=== PATIENT | male | born 1975 | race Two or more races ===

== ENCOUNTER 2017-10-15 06:50 | Inpatient (IN) | payer MEDICAID ==
[~2017-10-15] VITALS: Ht 172.7 cm; Wt 74.8 kg
[2017-10-15] VITALS (8 sets, daily range): BP systolic 110–129; BP diastolic 55–73
--- NOTE | 2017-10-15 07:20 | NUR ---
LT HIP ABSCESS X1 WEEK; BUST TODAY. FOUL SMELLING ODOR. NAD NOTED. PT AAOX 4, AM BWITH STEADY GAIT. RR EVEN AND UNALBORED. PENDING MD HOPE.
[2017-10-15] MEDS ORDERED: PIPERACILLIN /TAZOBACTAM 3.375 G in IV D5W 50 ML IV ONE (07:30)
[2017-10-15] MEDS ORDERED: CEFTRIAXONE 1GM BAG (ER ONLY) 50 ML IV ONE (07:30)
[2017-10-15] MEDS ORDERED: VANCOMYCIN 1 GM in IV D5W 250 ML IV ONE (07:30)
[2017-10-15] MEDS ORDERED: IV NS 0.9% 1,000 ML BAG IV ONE (07:30)
[2017-10-15] MEDS ORDERED: IBUPROFEN 600 MG TABLET PO ONE ×2 (07:30→08:21)
[2017-10-15] MEDS ORDERED: ACETAMINOPHEN ES 500 MG TABLET PO ONE (07:30)
[2017-10-15] MEDS ORDERED: ACETAMINOPHEN ES 500 MG TABLET ONE (08:21)
[2017-10-15 08:30] LABS: HEMATOCRIT 33 % (39-51); HEMOGLOBIN 10.9 g/dL (13.5-17.5); LYMPHOCYTES # (AUTO) 1.1 /CMM (0.8-4.8); LYMPHOCYTES % (AUTO) 6.3 % (20.0-44.0); MEAN CORPUSCULAR HGB CONC 33 g/dl (31.0-36.0); MEAN CORPUSCULAR VOLUME 83 fL (80-96); MONOCYTES # (AUTO) 1.7 /CMM (0.1-1.30); MONOCYTES % (AUTO) 9.2 % (2.0-12.0); NEUTROPHILS # (AUTO) 15.1 /CMM (1.8-8.9); NEUTROPHILS % (AUTO) 83.5 % (43.0-81.0); PLATELET COUNT (AUTO) 464 /CMM (150-450); RDW COEFFICIENT OF VARIATION 15.2 (11.5-15.0); RED BLOOD CELL COUNT(AUTO) 3.98 MIL/uL (4.5-6.0); WHITE BLOOD COUNT (AUTO) 18.1 K/uL (4.3-11.0)
--- NOTE | 2017-10-15 08:31 | NUR ---
MEDICATIONS GIVEN PER MD ORDER
[2017-10-15 08:45] LABS: BAND % (MANUAL) 2 % (0.0-5.0); EOSINOPHILS % (MANUAL) 1 % (0-4); LYMPHOCYTES % (MANUAL) 10 % (16-48); MONOCYTES % (MANUAL) 9 % (0-11.0); NEUTROPHILS % (MANUAL) 78 (42-76)
[2017-10-15 08:46] LABS: INR 1.04 (0.87-1.13)
[2017-10-15 08:56] LABS: CALCIUM, SERUM 8.8 mg/dL (8.5-10.1); CARBON DIOXIDE 26 mmol/L (21-32); CHLORIDE 98 mmol/L (98-107); CREATININE 0.9 mg/dL (0.6-1.3); GLUCOSE 101 mg/dL (74-106); POTASSIUM 3.6 mmol/L (3.5-5.1); SODIUM SERUM 135 mmol/L (136-145); UREA NITROGEN, BLOOD 12 mg/dL (7-18)
--- NOTE | 2017-10-15 08:59 | NUR ---
PAGED EPIC FOR ADMSSION
[2017-10-15 09:02] LABS: ALANINE AMINOTRANSFERASE 22 U/L (12-78); ALBUMIN 2.1 g/dL (3.4-5.0); ALKALINE PHOSPHATASE 132 U/L (46-116); ASPARTATE AMINOTRANSFERASE 22 U/L (15-37); BILIRUBIN,DIRECT 0.1 mg/dL (0.0-0.2); BILIRUBIN,TOTAL 0.2 mg/dL (0.2-1.0); TOTAL PROTEIN, SERUM 7.4 g/dL (6.4-8.2)
[2017-10-15 09:04] LABS: TROPONIN I < 0.017 ng/mL (0.00-0.056)
--- NOTE | 2017-10-15 09:47 | NUR ---
REPORT GIVEN TO QUAN QUINTANILLA FOR MELI
--- NOTE | 2017-10-15 09:55 | NUR ---
PT. BROUGHT UP FROM ER,PUT INTO PRIVATE RM.HAS FOUL SMELLING WD. LT. HIP AND DRAINING PURULENT MATTER.VS TAKEN AND ORIENTED TO RM.IV SITE INTACT LT. JUGULAR.VANCO STILLINFUSING FROM ER.
[2017-10-15 10:54] LABS: ALCOHOL, BLOOD < 3 mg/dL (0-0); LIPASE 45 U/L (73-393)
[2017-10-15] MEDS ORDERED: FEE PK DOSING 1 MIN EA MC ONE (12:30)
[2017-10-15] MEDS ORDERED: MAGNESIUM HYDROXIDE 30 ML UDC PO PRN (12:30)
[2017-10-15] MEDS ORDERED: ZOLPIDEM TARTRATE 5 MG TABLET PO PRN (12:30)
[2017-10-15] MEDS ORDERED: ACETAMINOPHEN 325 MG TABLET PO PRN (12:30)
[2017-10-15] MEDS ORDERED: Z GUARD REMEDY 2 OZ OINT TP PRN (12:30)
[2017-10-15] MEDS ORDERED: MAG HYDROX/AL HYDROX/SIMETH 30 ML UDC PO PRN (12:30)
--- NOTE | 2017-10-15 15:00 | NUR ---
URINE SENT TO LAB PER ORDERS.PHOTOS TAKEN OF SCAB INNER RT.THIGH AND ABSCESS LT. HIP.
[2017-10-15 18:04] LABS: APPEARANCE,URINE SL CLOUDY (CLEAR); BILIRUBIN,URINE NEGATIVE (NEGATIVE); BLOOD, URINE NEGATIVE Ery/uL (NEGATIVE); COLOR,URINE YELLOW (YELLOW); KETONES,URINE NEGATIVE (NEGATIVE); LEUKOCYTE ESTERASE ,URINE NEGATIVE (NEGATIVE); NITRITE, URINE NEGATIVE (NEGATIVE); PROTEIN,URINE NEGATIVE (NEGATIVE); UGLUCOSE NEGATIVE (NEGATIVE); UROBILINOGEN,URINE 0.2 EU/dL (0.2)
[2017-10-15] MEDS: HYDROCODONE/APAP 5/325MG 1 EACH TABLET PO PRN (18:24)
[2017-10-15] MEDS: VANCOMYCIN 1 GM in IV NS 0.9% 250 ML IV SCH (18:25)
--- NOTE | 2017-10-15 18:30 | NUR ---
MED FOR LT. HIP PAIN WITH NORCO.DR. RAHMAN IN TO SEE PT. AND STATED ER HAD CALLED DR. SAUCEDO.
--- NOTE | 2017-10-15 20:00 | NUR ---
MS RN OPENING NOTE Patient was seen lying in bed AAOx4, breathing on RA with no SOB. Patient was anxious, restless, dry-heaving and complaining of nausea. Patient is a heroin user and voiced concern about withdrawal. I administered 4mg of Zofran IV; patient was much more calm after Zofran was given. Wound on left hip was noted to be red, swollen, and painful (reason for ED visit). Vitals are WNL. Patient is satisfied with Zofran given and has no other immediate needs/concerns. Will continue to monitor.
[2017-10-15] MEDS: ONDANSETRON HCL/PF 4 MG/2 ML VIAL IVP PRN (20:05)
--- NOTE | 2017-10-15 21:19 | NUR ---
MS RN NOTE - New meds for withdrawal Spoke to Dr. Cipriano Morejon on the phone regarding patient's withdrawal symptoms from heroin/methamphetamines. Per Dr. Morejon, orders to be placed for [place] 10/325mg, q4h, PO; Ativan 2mg q8h PRN; and clonidine 0.1mg, tid, PO. Orders were read back and Dr. Morejon confirmed. Orders placed and acknowledged.
[2017-10-15] MEDS ORDERED: HYDROMORPHONE INJ 2 MG/ML DISP.SYRIN IV STA (21:55)
[2017-10-15] MEDS ORDERED: LIDOCAINE 1% INJ 50 ML MDV IJ ONE (22:00)
[2017-10-15] MEDS ORDERED: LIDOCAINE HCL/PF 1% 30 ML SDV ONE (22:10)
--- NOTE | 2017-10-15 22:10 | NUR ---
MS RN NOTE - Dilaudid One time dose of IV Dilaudid 2mg administered as ordered prior to bedside procedure wound drainage/debridement.
[2017-10-15] MEDS: HYDROCODONE/APAP 10/325MG 1 EA TABLET PO PRN (23:15)
--- NOTE | 2017-10-15 23:15 | NUR ---
MS RN NOTE - Grant Grant 10/325mg PO administered to patient as ordered by Dr. Cipriano Morejon for both pain relief d/t left hip abscess/wound infection and for heroin withdrawal. Patient reports 10/10 pain at left hip, is screaming/moaning, and restless.
[2017-10-16 00:15] VITALS: BP 109/57
[2017-10-16] MEDS: LORAZEPAM 1 MG TABLET PO PRN (00:24)
--- NOTE | 2017-10-16 00:25 | NUR ---
MS RN NOTE - Ativan PO Ativan 2mg administered as ordered per Dr. Morejon for opioid/amphetamine withdrawal. Patient is restless, anxious, and crying. Will continue to monitor.
[2017-10-16 01:15] VITALS: BP 136/77
[2017-10-16] MEDS: VANCOMYCIN 1 GM in IV NS 0.9% 250 ML IV SCH ×3 (01:22→16:45)
[2017-10-16] MEDS: HYDROCODONE/APAP 10/325MG 1 EA TABLET PO PRN ×2 (03:16→17:07)
--- NOTE | 2017-10-16 06:48 | NUR ---
MS RN CLOSING NOTE Patient was seen in bed AAOx4, breathing on RA with no SOB. Patient slept intermittently overnight, complaining frequently of left hip pain (s/p wound debridement/drainage, wound infection); patient is also a regular heroin/amphetamine user. PRN [place], Ativan, and Zofran provided for pain and withdrawal symptoms (see previous notes). Patient has SL 20g IV in the left external jugular vein. Left hip wound is covered with dressing which is clean, dry, and intact (to be changed BID). Bed is in low/locked position, two side rails up, call dumont within reach. All orders carried out and patient needs met this shift. Patient remains in stable condition and care is endorsed to day shift nurse.
--- NOTE | 2017-10-16 07:36 | NUR ---
RN OPENING NOTES RECEIVED PT. PT IS STABLE AND SLEEPING IN BED. NO S/S OF RESP DISTRESS OR SOB. PT DOES NOT APPEAR TO BE IN PAIN AT THIS TIME. L HIP WOUND NOTED, DRESSING REMAINS UNSATURATED. IV ACCESS LOCATED ON LEFT JUGULAR 20G, SL. SAFETY MEASURES IN PLACE, CALL LIGHT WITHIN REACH. WILL CONTINUE TO MONITOR.
--- NOTE | 2017-10-16 07:57 | NUR ---
RN NOTES PT IS REFUSING AM VITAL SIGNS. EXPLAINED THE BENEFITS/RISKS TO PT, PT VERBALIZED UNDERSTANDING. WILL F/U FOR VS RETAKE IN APPROX 1 HR.
[2017-10-16 08:34] LABS: CALCIUM, SERUM 8.3 mg/dL (8.5-10.1); CREATININE 0.9 mg/dL (0.6-1.3); PHOSPHORUS 3.3 mg/dL (2.5-4.9); POTASSIUM 3.5 mmol/L (3.5-5.1)
[2017-10-16 08:41] LABS: BASOPHILS % (AUTO) 0.1 % (0.0-2.0); EOSINOPHILS % (AUTO) 0.8 % (0.0-6.0); HEMATOCRIT 34 % (39-51); HEMOGLOBIN 11.3 g/dL (13.5-17.5); LYMPHOCYTES # (AUTO) 1.5 /CMM (0.8-4.8); LYMPHOCYTES % (AUTO) 9.1 % (20.0-44.0); MEAN CORPUSCULAR HGB CONC 33 g/dl (31.0-36.0); MEAN CORPUSCULAR VOLUME 82 fL (80-96); MONOCYTES % (AUTO) 5.7 % (2.0-12.0); NEUTROPHILS # (AUTO) 14.3 /CMM (1.8-8.9); NEUTROPHILS % (AUTO) 84.3 % (43.0-81.0); PLATELET COUNT (AUTO) 501 /CMM (150-450); RDW COEFFICIENT OF VARIATION 15.7 (11.5-15.0); RED BLOOD CELL COUNT(AUTO) 4.11 MIL/uL (4.5-6.0)
[2017-10-16 09:00] VITALS: BP 120/74
[2017-10-16] MEDS: CLONIDINE HCL 0.1 MG TABLET PO SCH ×3 (09:00→16:45)
[2017-10-16] MEDS: HYDROCODONE/APAP 5/325MG 1 EACH TABLET PO PRN (09:18)
--- NOTE | 2017-10-16 11:49 | NUR ---
WOUND CARE CONSULT WOUND CARE RECEIVED CONSULT FOR LEFT HIP ABSCESS POS FOR MRSA. WOUND CARE WILL DEFER TREATMENT PLAN TO PRIMARY SURGEON DR SAUCEDO AT THIS TIME WITH WOUND CARE ASSIST IF NEEDED. DISCUSSED WITH PRIMARY RN TODAY AND HE WILL CALL SURGEON FOR TREATMENT ORDERS.
--- NOTE | 2017-10-16 14:30 | NUR ---
RN NOTES CONTACTED DR. SAUCEDO FOR INSTRUCTIONS IN PERFORMING WOUND CARE ORDERS. AWAITING RESPONSE FROM DRESSING REMAINS UNSATURATED AND INTACT. WILL F/U WITH .
--- NOTE | 2017-10-16 14:30 | NUR ---
Social service consult requested by Dr. Green for homelessness and drug use. Pt. is a 42 year old male who was admitted to [facility] for left hip cellulitis. LUCAS and case management associate Kandace Lombardo met with pt. bedside. Pt. is alert and oriented x 4. Pt. appears disheveled and has tattoos all over his body. Pt. states he is homeless and has been for the past two years. Prior to being homeless, pt. had an apartment on [address]. Pt. also had a job but lost his job due to injury. Pt. receives $250/ month in [employer] and $180/ month in food stamps. Pt. states he has a tent at the [facility] in [facility]. Pt. is a drug user and his drug of choice is heroin and methamphetamines. Pt. last used three weeks ago. Pt. attended [facility] center in 2002. LUCAS offered pt. if he would like to go to inpatient rehab. again. Pt. declined stating he is interested in outpatient treatment at this time. LUCAS informed pt. she will call [facility] and have them come assess him tomorrow. Pt. agreed. LUCAS contacted [facility] in [place] and spoke to Roger who informed SW he will come by to assess pt. tomorrow at 1:30PM. LUCAS updated Med Surg 3 REBEKA Zayas regarding the assessment. SW to follow up with pt. tomorrow again prior to discharge.
[2017-10-16 16:00] VITALS: BP 117/67
--- NOTE | 2017-10-16 18:44 | NUR ---
RN CLOSING NOTES PT STABLE IN BED. NO S/S OF RESP DISTRESS/SOB. PT HAS C/O PAIN / HOWEVER NORCO 10 RECENTLY GIVEN. DRESSING CHANGE PERFORMED. SAFETY MEASURES IN PLACE, CALL LIGHT WITHIN REACH. WILL ENDORSE TO TIMBER MANAGEMENT ASSISTANT FOR MELI.
[2017-10-16] MEDS: ONDANSETRON HCL/PF 4 MG/2 ML VIAL IVP PRN (19:17)
--- NOTE | 2017-10-16 19:30 | NUR ---
MS RN OPENING NOTE Patient was seen lying in bed AAOx4, breathing on RA with no SOB, and no signs of acute distress. Dressing on left hip was recently changed on last shift and is clean, dry, and intact. Vanco is running through the left ext. jugular. Bed is in low/locked position, two side rails up, and call dumont within reach. Patient has no immediate needs/concerns at this time. Will continue to monitor.
[2017-10-16 20:00] VITALS: BP 138/83
[2017-10-17] MEDS: VANCOMYCIN 1 GM in IV NS 0.9% 250 ML IV SCH ×3 (01:29→16:58)
[2017-10-17] MEDS: HYDROCODONE/APAP 10/325MG 1 EA TABLET PO PRN (05:39)
--- NOTE | 2017-10-17 07:28 | NUR ---
MS RN CLOSING NOTE Patient was seen in bed AAOx4, breathing on RA with no SOB, and no signs of acute distress. Patient slept well overnight with no complaints and remains stable. Wound care provided prior to shift change; left hip wound was cleansed with betadine solution, packed with keriliex, and covered with abd dressing per MD order. SL 20g IV is in the left ext. jugular and is intact, patent, & flushed. Bed is in the low/locked position, two side rails up, and call dumont within reach. Patient care has been endorsed to day shift nurse.
--- NOTE | 2017-10-17 07:44 | NUR ---
RN OPENING NOTES PT IN BED SLEEPING, HOWEVER AROUSES EASILY. NO S/S OF RESP DISTRESS/SOB. PT DOES NOT APPEAR TO BE IN PAIN AT THIS TIME. LEFT EJ IV ACCESS PATENT/IN PLACE. L HIP WOUND DRESSING DRY/CLEAN/UNSATURATED. SAFETY MEASURES IN PLACE, CALL LIGHT IN REACH. WILL CONTINUE TO MONITOR.
[2017-10-17 08:00] VITALS: BP 128/72
[2017-10-17] MEDS: CLONIDINE HCL 0.1 MG TABLET PO SCH ×3 (08:34→17:00)
[2017-10-17 09:00] VITALS: BP 128/72
--- NOTE | 2017-10-17 10:00 | NUR ---
RN NOTES PT FOUND IN ROOM WITH GUEST, WITH NOTICEABLE ODOR OF CIGARETTE SMOKE WITHIN THE ROOM. PT AND VISITOR DENY ACTIVELY SMOKING IN THE ROOM WITH THE VISITOR STATING "i WAS JUST SMOKING OUTSIDE, I JUST SMELL LIKE CIGARETTES." EXPLAINED TO THE PT THE DANGERS OF SMOKING WITHIN THE HOSPITAL ROOM, PT AND VISITOR VERBALIZE UNDERSTANDING OF DANGERS OF SMOKING. PT MOVED TO ROOM 323-1, TO BE BETTER SUPERVISED DURING HOSPITAL STAY. WILL CONTINUE TO MONITOR.
--- NOTE | 2017-10-17 13:35 | NUR ---
LUCAS escorted Roger from [facility] program to assess the pt. for outpatient per pt's request. Per Roger, pt. had a friend in the room with him and she suggested for pt. to go to detox program and not outpatient. LUCAS contacted [facility] and spoke to Nay Iyer at [facility] for detox and they both have no availability at this time. LUCAS to give pt. referrals to drug rehabilitation programs prior to discharge.
[2017-10-17] MEDS: HYDROCODONE/APAP 5/325MG 1 EACH TABLET PO PRN (13:36)
[2017-10-17] MEDS: LORAZEPAM 1 MG TABLET PO PRN (13:36)
--- NOTE | 2017-10-17 14:07 | NUR ---
RN NOTES LAB UNABLE TO DRAW BLOOD FOR PT'S ROUTINE CBC. PT HAD BECOME ANGRY/AGITATED REGARDING THE MULTIPLE ATTEMPTS TO DRAW SAMPLE. ATIVAN AND PAIN MEDICATION GIVEN TO CONTROL BOTH PAIN AND INCREASING AGITATION. WILL CONTINUE TO MONITOR.
--- NOTE | 2017-10-17 14:09 | NUR ---
RN NOTES PT HAD MEETING WITH [facility]. PT IS REQUESTING DETOX AND NOT REHAB SERVICES. WILL F/U WITH CASE MANAGEMENT.
--- NOTE | 2017-10-17 14:47 | NUR ---
LUCAS met with pt. bedside and informed him that after calling [facility] and [facility], no beds are available at this time. LUCAS gave pt. list of referrals to drug treatment programs and detox programs such as [facility], [facility], [facility] recovery in [facility] and many more on the list.
[2017-10-17 16:00] VITALS: BP 113/64
--- NOTE | 2017-10-17 17:13 | NUR ---
RN NOTES PT ASLEEP IN BED. DOZING INTERMITTENTLY.PT REFUSING WOUND CARE AT THIS TIME. WILL F/U WITH THEM SHORTLY.
--- NOTE | 2017-10-17 18:47 | NUR ---
RN CLOSING NOTES PT IN BED SLEEPING. EASY TO WAKE/AROUSE. NO S/S OF RESP DISTRESS OR SOB. PT HAS REFUSED WOUND CARE WHICH WAS AGREED TO BE PERFORMED IN AFTERNOON, STATING "NOT NOW, LATER" AND FALLING BACK ASLEEP. VISITATIONS ARE TO BE SUPERVISED DUE TO SUSPICION OF POTENTIAL CONTRABAND BEING BROUGHT IN FROM VISITORS. SAFETY MEASURES IN PLACE, CALL LIGHT WITHIN REACH. WILL ENDORSE TO COMMUNICATIONS TOWER TECHNICIAN FOR MELI.
[2017-10-17 20:00] VITALS: BP_SYST 124; BP_DIAS 79; BP_DIAS 92
[2017-10-18] MEDS: VANCOMYCIN 1 GM in IV NS 0.9% 250 ML IV SCH ×2 (02:27→08:30)
--- NOTE | 2017-10-18 06:37 | NUR ---
MS RN NOTES AWAKE & RESPONSIVE. NOT IN ANY DISTRESS. NO SOB NOTED. DENIES ANY PAIN OR DISCOMFORT AT THIS TIME. WITH IV-HL PATENT & INTACT. MONITORED ACCORDINGLY. CALL LIGHT WITHIN REACH. BED IN LOWEST POSITION. SR UP X 2 FOR SAFETY. WILL ENDORSE TO NEXT SHIFT.
--- NOTE | 2017-10-18 07:40 | NUR ---
RN OPENING NOTES RECEIVED PT. PT IS STABLE AND RESTING IN BED. A/OX4. NO S/S OF RESP DISTRESS OR SOB. PT HAS C/O PAIN AT 8/10 ON LEFT HIP, WILL ADDRESS PHARMACOLOGICALLY. IV ACCESS LOCATED ON LFA 22G EXT JUGULAR, SL. PER PESTICIDE CHEMIST REPORT, PT DRESSING CHANGE PERFORMED BY DR. SAUCEDO YESTERDAY 10/17/17. SAFETY MEASURES IN PLACE, CALL LIGHT WITHIN REACH. WILL CONTINUE TO MONITOR.
[2017-10-18 08:00] VITALS: BP 119/81
[2017-10-18 08:30] VITALS: BP 119/81
[2017-10-18] MEDS: CLONIDINE HCL 0.1 MG TABLET PO SCH (08:30)
[2017-10-18] MEDS: HYDROCODONE/APAP 10/325MG 1 EA TABLET PO PRN ×2 (08:38→13:02)
[2017-10-18] MEDS ORDERED: CLINDAMYCIN IV RTU IN D5W 900 MG/50 ML PIGGYBACK IV SCH (09:00)
[2017-10-18] MEDS ORDERED: CLINDAMYCIN 900 MG in IV D5W 50 ML IV SCH (09:00)
[2017-10-18] MEDS ORDERED: NICOTINE PATCH (14MG) 14 MG PATCH.TD24 TD SCH (10:30)
[2017-10-18] MEDS ORDERED: NICOTINE PATCH (21MG) 21 MG PATCH.TD24 TD SCH (10:30)
[2017-10-18] MEDS: LORAZEPAM 1 MG TABLET PO PRN (13:02)
--- NOTE | 2017-10-18 14:30 | NUR ---
DISCHARGE NOTE PT LEFT HOSPITAL AMA. PT COMPLAINING OF INCREASED ANXIETY OVER HOSPITALIZATION. STATED "I CANT DO THIS ANYMORE". PT MADE STATEMENTS SAYING THAT HE FEELS CLAUSTRAPHOBIC WITHIN HIS ROOM. REQUESTING TO LEAVE AMA. PT EXPLAINED RISKS OF LEAVING WITHOUT MEDICAL CLEARANCE AND POSSIBLE DETRIMENTS TO HIS HEALTH, VERBALIZES UNDERSTANDING OF TEACHING. AMA FORM SIGNED. PT REFUSED TO SIGN VALUABLES SHEET. REFUSED PICTURES OF SKIN ASSESSMENTS AND WOUNDS. PT ESCORTED TO FRONT EXIT/ENTRANCE ONCE DISCHARGED. WILL COMPLETE INCIDENT REPORT.
--- NOTE | 2017-10-18 14:55 | NUR ---
SW was about to see the pt. to give him more homeless resources, however LUCAS was informed by clinical case manager that pt. left AMA.
== END 2017-10-18 13:46 | disposition left against medical advice (07) | DRG 951 ==
LOC: ER 06:56 → MED 09:32
PROVIDERS: ADMIT Family Medicine; ATTEND Family Medicine
PROC: 0S9B0ZZ Drainage of Left Hip Joint, Open Approach (ICD-10-PCS; principal; 2017-10-15)
DX: L03.116 Cellulitis of left lower limb (principal); E43 Unspecified severe protein-calorie malnutrition; L02.416 Cutaneous abscess of left lower limb; D63.8 Anemia in other chronic diseases classified elsewhere; Z59.0 Homelessness; F17.200 Nicotine dependence, unspecified, uncomplicated; F14.10 Cocaine abuse, uncomplicated; F11.90 Opioid use, unspecified, uncomplicated
CPT/HCPCS: 36415; 71045-TC; 73502; 80048-TC; 80061-TC; 80076-TC; 80202-TC; 80305; 81000-TC; 83605-TC; 83690-TC; 83735-TC; 84100-TC; 84484-TC; 85025-TC; 85730-TC; 87040-TC; 87070-TC; 87081-TC; 87086-TC; A4606; A6253; A6402; A6403; A6407; G0480; J0696; J1170; J2405; J2543; J3370; J3490; J7030; J7040; J7050; J7060; Z7610